=== PATIENT | female | born 1980 | race Caucasian/White ===

== ENCOUNTER 2016-10-25 20:22 | Emergency (ER) ==
[2016-10-25 20:31] VITALS: BP 106/70; TEMP 98.4; BMI 24.6
[2016-10-25] MEDS ORDERED: MORPHINE 4 MG/ML SYRINGE IVP STA (20:37)
[2016-10-25] MEDS ORDERED: ZOSYN 3.375 GM 3.375 GM in SODIUM CHLORIDE 100 ML IV STA (20:37)
[2016-10-25] MEDS ORDERED: ZOFRAN 4 MG/2 ML IVP STA (20:37)
[2016-10-25 20:53] LABS: BASOPHILS # (AUTO) 0.1 K/uL (0-0.2); BASOPHILS % (AUTO) 0.5 % (0.0-3.0); EOSINOPHILS # (AUTO) 0.1 K/ul (0.0-0.7); HEMATOCRIT 34.7 % (37.0-47.0); HEMOGLOBIN 12.5 g/dl (12.0-16.0); IMMATURE GRANULOCYTE % (AUTO) 0.2 % (0.0-5.0); LYMPHOCYTES # (AUTO) 2.1 K/uL (0.60-3.4); LYMPHOCYTES % (AUTO) 19.2 (10.0-50.0); MEAN CORPUSCULAR HEMOGLOBIN 31.6 pg (27.0-31.0); MEAN CORPUSCULAR VOLUME 87.6 fl (81.0-99.0); MONOCYTES # (AUTO) 0.6 K/uL (0.4-2.0); MONOCYTES % (AUTO) 5.6 (0-10); NEUTROPHILS # (AUTO) 7.8 K/ul (2.0-6.9); NEUTROPHILS % (AUTO) 73.5; PLATELET COUNT 239 10^3/uL (140-440); RED BLOOD COUNT 3.96 10^6/ul (4.20-5.40); WHITE BLOOD COUNT 10.65 K/ul (4.6-10.2)
[2016-10-25 21:13] LABS: ALBUMIN 3.9 g/dL (3.4-5.0); ALBUMIN/GLOBULIN RATIO 1.44; ANION GAP 14.3; BILIRUBIN,TOTAL 0.52 mg/dL (0.00-1.20); BUN/CREATININE RATIO 17.44; CALCIUM 9.1 mg/dL (8.2-10.2); CREATININE 0.86 mg/dL (0.60-1.30); POTASSIUM 3.3 mmol/L (3.5-5.10); TOTAL PROTEIN 6.6 g/dL (6.4-8.2)
--- NOTE | 2016-10-25 21:27 | ED.PDOC ---
General ED Provider: Dr. DEANGELO VITALE Chief Complaint: Bite Stated Complaint: Hasmukh is a 36 year old who comes to the ER with right foot pain and rash on right lower leg with a raised area that has gotten worse in the pat few hours. She thinks it started off as a bite. states the pain is severe radiating to the right ankle. Time Seen by Physician: 20:30 Mode of Arrival: Walk-In Information Source: Patient Exam Limitations: No limitations Primary Care Provider: SAURABH SANDOVAL Nursing and Triage Documentation Reviewed and Agree: Yes Skin Complaint Exam - Skin/Soft Tissue Complaint/Exam Onset/Duration: 1 day Symptoms Are: Still present Timing: Constant Initial Severity: Mild Current Severity: Moderate Location: Left burgos and ankle Character: Reports: Redness, Swelling, Raised, Painful Aggravating: Reports: Touch Alleviating: Reports: None Associated Signs and Symptoms: Reports: Tenderness, Red streaks, Joint swelling Related History: Reports: Insect bite/sting Recent Exposure to Others w/Similar Symptoms: No Skin Findings: Present: Erythema, Induration, Lymphangitic streaking, Pustules Joint Tenderness Present: Yes Differential Diagnoses: Abscess, Cellulitis, Lymphadenitis, MRSA Review of Systems - Review Of Systems Constitutional: Reports: No symptoms Eyes: Reports: No symptoms Ears, Nose, Mouth, Throat: Reports: No symptoms Respiratory: Reports: No symptoms Cardiac: Reports: No symptoms GI: Reports: No symptoms : Reports: No symptoms Musculoskeletal: Reports: Joint pain (right ankle pain. ) Skin: Reports: Lesions, Rash Neurological: Reports: No symptoms Endocrine: Reports: No symptoms Hematologic/Lymphatic: Reports: No symptoms All Other Systems: Reviewed and Negative Past Medical History - Past Medical History Previously Healthy: Yes Endocrine: Reports: None Cardiovascular: Reports: OK, Other (myocarditis ) Respiratory: Reports: None Hematological: Reports: None Gastrointestinal: Reports: None Genitourinary: Reports: None Neuro/Psych: Reports: None Musculoskeletal: Reports: None Cancer: Reports: None Last Menstrual Period: 1 month ago - Surgical History General Surgical History: Reports: None - Family History Family History: Reports: None - Social History Smoking Status: Former smoker Hx Substance Use: No Alcohol Screening: None - Immunizations Tetanus Shot up to Date: Yes Physical Exam - Physical Exam Appearance: Ill-appearing Ill-appearing: Moderate Pain Distress: Severe Neck: Supple Respiratory: Airway patent, Breath sounds clear, Breath sounds equal, Respirations nonlabored Cardiovascular: RRR, Pulses normal, No rub, No murmur GI/: Soft, Nontender, No masses, Bowel sounds normal, No Organomegaly Musculoskeletal: ROM intact, Edema (left ankle ) Skin: Warm, Dry Neurological: Sensation intact, Motor intact, Reflexes intact, Cranial nerves intact, Alert, Oriented Psychiatric: Anxious Critical Care Note - Critical Care Note Total Time (mins): 0 Course - Course Hematology/Chemistry: 10/25/16 20:37 10/25/16 20:54 Orders, Labs, Meds: Lab Review 10/25/16 10/25/16 20:37 20:54 WBC 10.65 H RBC 3.96 L Hgb 12.5 Hct 34.7 L MCV 87.6 MCH 31.6 H MCHC 36.0 H RDW Coeff of Sudha 12.7 Plt Count 239 Immature Gran % (Auto) 0.2 Neut % (Auto) 73.5 Lymph % (Auto) 19.2 Cotton % (Auto) 5.6 Eos % (Auto) 1.0 Baso % (Auto) 0.5 Immature Gran # (Auto) 0.0 Neut # 7.8 H Lymph # 2.1 Cotton # 0.6 Eos # 0.1 Baso # 0.1 Sodium 140 Potassium 3.3 L Chloride 106 Carbon Dioxide 23 Anion Gap 14.3 BUN 15 Creatinine 0.86 Estimated GFR (MDRD) 75.00 BUN/Creatinine Ratio 17.44 Glucose 95 Calcium 9.1 Total Bilirubin 0.52 AST 14 L ALT 12 Alkaline Phosphatase 60 Total Protein 6.6 Albumin 3.9 Globulin 2.7 Albumin/Globulin Ratio 1.44 Orders Category Date Time Status IV ACCESS ONCE CARE 10/25/16 20:37 Active ED VITAL SIGNS Q1HR EMERGENCY 10/25/16 20:37 Active BLOOD CULTURE Stat LAB 10/25/16 20:54 Results CBC W/ AUTO DIFF Stat LAB 10/25/16 20:37 Completed COMPREHENSIVE METABOLIC PANEL Stat LAB 10/25/16 20:54 Completed Morphine Sulfate [Morphine 4 mg/ml Syringe] MEDS 10/25/16 20:37 Discontinued 4 mg IVP ONCE STA Ondansetron HCl/Pf [Zofran 4 mg/2 ml] MEDS 10/25/16 20:37 Discontinued 4 mg IVP ONCE STA Piperacillin Sodium/Tazobactam [Zosyn 3.375 gm] 3.375 MEDS 10/25/16 20:37 Discontinued gm 0.9 % Sodium Chloride [Sodium Chloride] 100 ml IV ONCE Medications Discontinued Medications Generic Name Dose Route Start Last Admin Trade Name Mumtaz PRN Reason Stop Dose Admin Piperacillin Sod/Tazobactam 100 mls @ 100 mls/hr 10/25/16 20:37 10/25/16 21: 10 Sod 3.375 gm/ Sodium Chloride IV 10/25/16 21:36 100 mls/hr ONCE STA Administration Morphine Sulfate 4 mg 10/25/16 20:37 10/25/16 21:09 Morphine 4 Mg/Ml Syringe IVP 10/25/16 20:38 4 mg ONCE STA Administration Ondansetron HCl 4 mg 10/25/16 20:37 10/25/16 21:09 Zofran 4 Mg/2 Ml IVP 10/25/16 20:38 4 mg ONCE STA Administration Vital Signs: Temp Pulse Resp BP Pulse Ox 10/25/16 20:22 98.4 F 84 20 106/70 97 Departure - Departure Time of Disposition: 21:50 Disposition: HOME SELF-CARE Discharge Problem: Bite Cellulitis Qualifiers: Site of cellulitis: extremity Site of cellulitis of extremity: lower extremity Laterality: right Qualifier Code: (L03.115) Cellulitis of right lower limb Instructions: Cellulitis (ED), Brown Recluse Spider Bite (ED) Condition: Stable Pt referred to PMD for follow-up: Yes Additional Instructions: Take medications as prescribed Follow up with PCP in 3 days Return if worse as it may need debriedment Prescriptions: Cephalexin [Keflex] 500 mg PO Q8HR #30 capsule Ibuprofen [Motrin] 600 mg PO Q6H PRN #30 tablet PRN Reason: Analgesia Allergies/Adverse Reactions: Allergies No Known Drug Allergies Adverse Reaction (Verified 10/27/16 16:56) Home Medications: Ambulatory Orders Chlordiazepoxide HCl [Librium] 10 mg PO BID PRN 10/11/16 Cephalexin [Keflex] 500 mg PO Q8HR #30 capsule 10/25/16 Ibuprofen [Motrin] 600 mg PO Q6H PRN #30 tablet 10/25/16 Disposition Discussed With: Patient, Family
== END 2016-10-25 21:31 | disposition home or self-care (01) ==
LOC: ED 20:22
DX: L03.115 Cellulitis of right lower limb (principal); T63.331A Toxic effect of venom of brown recluse spider, accidental (unintentional), initial encounter
CPT/HCPCS: 36415; 80053; 85025; 87040; 96365; 96375; 99283; 99284

== ENCOUNTER 2016-10-27 16:37 | Inpatient (IN) ==
[2016-10-27 16:42] VITALS: BMI 24.3
[2016-10-27] MEDS ORDERED: VANCOMYCIN 1 GM in SODIUM CHLORIDE 250 ML IV STA (17:06)
[2016-10-27] MEDS ORDERED: SODIUM CHLORIDE 1,000 ML IV STA (17:06)
[2016-10-27 17:17] LABS: BASOPHILS % (AUTO) 0.5 % (0.0-3.0); EOSINOPHILS # (AUTO) 0.2 K/ul (0.0-0.7); EOSINOPHILS % (AUTO) 1.9 % (0.0-7.0); HEMATOCRIT 32.8 % (37.0-47.0); HEMOGLOBIN 11.7 g/dl (12.0-16.0); IMMATURE GRANULOCYTE % (AUTO) 0.2 % (0.0-5.0); LYMPHOCYTES # (AUTO) 1.7 K/uL (0.60-3.4); LYMPHOCYTES % (AUTO) 20.2 (10.0-50.0); MEAN CORPUSCULAR HEMOGLOBIN 31.2 pg (27.0-31.0); MEAN CORPUSCULAR HGB CONC 35.7 (31.8-35.4); MEAN CORPUSCULAR VOLUME 87.5 fl (81.0-99.0); MONOCYTES # (AUTO) 0.5 K/uL (0.4-2.0); MONOCYTES % (AUTO) 5.7 (0-10); NEUTROPHILS % (AUTO) 71.5; PLATELET COUNT 234 10^3/uL (140-440); RED BLOOD COUNT 3.75 10^6/ul (4.20-5.40); WHITE BLOOD COUNT 8.36 K/ul (4.6-10.2)
[2016-10-27 17:31] LABS: SERUM PREGNANCY INTERNAL QC INTERNAL QC VALID
[2016-10-27] MEDS ORDERED: TORADOL IVP STA (17:36)
[2016-10-27 17:39] LABS: ALBUMIN 3.5 g/dL (3.4-5.0); ALBUMIN/GLOBULIN RATIO 1.21; ANION GAP 11.6; BILIRUBIN,TOTAL 0.37 mg/dL (0.00-1.20); BUN/CREATININE RATIO 14.42; CREATININE 1.04 mg/dL (0.60-1.30); POTASSIUM 3.6 mmol/L (3.5-5.10); TOTAL PROTEIN 6.4 g/dL (6.4-8.2)
--- NOTE | 2016-10-27 17:46 | ED.PDOC ---
General ED Provider: Dr. BECKY MCCORMICK-ER Chief Complaint: Bite Stated Complaint: was seen in the ed 2 days ago for "bug bite" now with erythema from knee to ankle--warm--noted early abscess right mid lower leg Time Seen by Physician: 16:40 Mode of Arrival: Walk-In Information Source: Patient Exam Limitations: No limitations Primary Care Provider: SAURABH KWON Nursing and Triage Documentation Reviewed and Agree: Yes Skin Complaint Exam - Skin/Soft Tissue Complaint/Exam Onset/Duration: 2 days Symptoms Are: Still present Timing: Constant Initial Severity: Mild Current Severity: Moderate Location: right lower leg Character: Reports: Redness, Swelling, Raised, Painful Alleviating: Reports: None Associated Signs and Symptoms: Reports: Tenderness, Red streaks, Joint swelling. 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 Related Surgical History: Reports: None Recent Exposure to Others w/Similar Symptoms: No Skin Findings: Present: Erythema, Induration, Fluctuant mass Joint Tenderness Present: No Differential Diagnoses: Abscess, Cellulitis Review of Systems - Review Of Systems Constitutional: Reports: No symptoms Eyes: Reports: No symptoms Ears, Nose, Mouth, Throat: Reports: No symptoms Respiratory: Reports: No symptoms Cardiac: Reports: No symptoms GI: Reports: No symptoms : Reports: No symptoms Musculoskeletal: Reports: No symptoms Skin: Reports: Rash Neurological: Reports: No symptoms Endocrine: Reports: No symptoms Hematologic/Lymphatic: Reports: No symptoms All Other Systems: Reviewed and Negative Past Medical History - Past Medical History Previously Healthy: Yes Endocrine: Reports: None Cardiovascular: Reports: NC Respiratory: Reports: None Hematological: Reports: None Gastrointestinal: Reports: None Genitourinary: Reports: None Neuro/Psych: Reports: None Musculoskeletal: Reports: None Cancer: Reports: None Last Menstrual Period: now - Surgical History General Surgical History: Reports: None - Family History Family History: Reports: None - Social History Smoking Status: Former smoker Hx Substance Use: No Alcohol Screening: None Lives: With family Physical Exam - Physical Exam Appearance: Well-appearing, No pain distress, Well-nourished Pain Distress: Moderate Eyes: KULWINDER, EOMI, Conjunctiva clear ENT: Ears normal, Nose normal, Oropharynx normal Neck: Supple Respiratory: Airway patent, Breath sounds clear, Breath sounds equal, Respirations nonlabored Cardiovascular: RRR, Pulses normal, No rub, No murmur GI/: Soft, Nontender, No masses, Bowel sounds normal, No Organomegaly Musculoskeletal: Normal strength, ROM intact, No edema, No calf tenderness Skin: Warm, Dry (noted erythema from ankle to knee and notd mid burgos small abscess 2cm), Normal color Neurological: Sensation intact, Motor intact, Reflexes intact, Cranial nerves intact, Alert, Oriented Psychiatric: Affect appropriate, Mood appropriate Physician Notification - Case Discussed Physician Notified: dr kwon Time of Notification: 17:47 Critical Care Note - Critical Care Note Total Time (mins): 0 Course - Course Hematology/Chemistry: 10/27/16 17:10 10/27/16 17:10 Orders, Labs, Meds: Lab Review 10/27/16 17:10 WBC 8.36 RBC 3.75 L Hgb 11.7 L Hct 32.8 L MCV 87.5 MCH 31.2 H MCHC 35.7 H RDW Coeff of Sudha 13.1 Plt Count 234 Immature Gran % (Auto) 0.2 Neut % (Auto) 71.5 Lymph % (Auto) 20.2 [place] % (Auto) 5.7 Eos % (Auto) 1.9 Baso % (Auto) 0.5 Immature Gran # (Auto) 0.0 Neut # 6.0 Lymph # 1.7 O'Brien # 0.5 Eos # 0.2 Baso # 0.0 ESR Pending Sodium 139 Potassium 3.6 Chloride 105 Carbon Dioxide 26 Anion Gap 11.6 BUN 15 Creatinine 1.04 Estimated GFR (MDRD) 60.00 BUN/Creatinine Ratio 14.42 Glucose 82 Calcium 9.0 Total Bilirubin 0.37 AST 13 L ALT 13 Alkaline Phosphatase 55 Total Protein 6.4 Albumin 3.5 Globulin 2.9 Albumin/Globulin Ratio 1.21 Serum , Qual Negative Orders Category Date Time Status ED IV/MEDIPORT/POWERPORT .ONCE EMERGENCY 10/27/16 17:06 Active CBC W/ AUTO DIFF Stat LAB 10/27/16 17:10 Results COMPREHENSIVE METABOLIC PANEL Stat LAB 10/27/16 17:10 Completed ESR Stat LAB 10/27/16 17:10 Results SERUM Stat LAB 10/27/16 17:10 Completed 0.9 % Sodium Chloride [Saline Flush] MEDS 10/27/16 17:06 Active 1 syr IVF PRN PRN Ketorolac Tromethamine [Toradol] MEDS 10/27/16 17:36 Discontinued 30 mg IVP ONCE STA Sodium Chloride 0.9% [Sodium Chloride] 1,000 ml MEDS 10/27/16 17:06 Active IV 100 mls/hr Vancomycin HCl [Vancomycin] 1 gm MEDS 10/27/16 17:06 Active 0.9 % Sodium Chloride [Sodium Chloride] 250 ml IV ONCE Medications Generic Name Dose Route Start Last Admin Trade Name Freq PRN Reason Stop Dose Admin Sodium Chloride 1,000 mls @ 100 mls/hr 10/27/16 17:06 10/27/16 17:31 Sodium Chloride IV 10/28/16 03:05 100 mls/hr .Q10H STA Administration Vancomycin HCl 1 gm/ Sodium 250 mls @ 250 mls/hr 10/27/16 17:06 10/27/16 17: 31 Chloride IV 10/27/16 18:05 250 mls/hr ONCE STA Administration Sodium Chloride 1 syr 10/27/16 17:06 10/27/16 17:35 Saline Flush IVF 1 syr PRN PRN Administration To flush IV Discontinued Medications Generic Name Dose Route Start Last Admin Trade Name Freq PRN Reason Stop Dose Admin Ketorolac Tromethamine 30 mg 10/27/16 17:36 Toradol IVP 10/27/16 17:37 ONCE STA Vital Signs: Temp Pulse Resp BP Pulse Ox 10/27/16 16:38 98.1 F 107 H 16 122/72 96 Departure - Departure Time of Disposition: 17:47 Disposition: HOME SELF-CARE Discharge Problem: Cellulitis Qualifiers: Site of cellulitis: extremity Site of cellulitis of extremity: lower extremity Laterality: right Qualifier Code: (L03.115) Cellulitis of right lower limb Instructions: Cellulitis (ED) Condition: Good Pt referred to PMD for follow-up: Yes Allergies/Adverse Reactions: Allergies No Known Drug Allergies Adverse Reaction (Verified 10/27/16 16:56) Home Medications: Ambulatory Orders Chlordiazepoxide HCl [Librium] 10 mg PO BID PRN 10/11/16 Cephalexin [Keflex] 500 mg PO Q8HR #30 capsule 10/25/16 Hydrocodone/Acetaminophen [[place] 5-325 Tablet] 1 tab PO Q6HR PRN #12 tablet Ibuprofen [Motrin] 600 mg PO Q6H PRN #30 tablet 10/25/16 Disposition Discussed With: Patient, Family
[2016-10-27 17:47] LABS: ERYTHROCYTE SEDIMENTATION RATE 22 mm/hr (0-20); ESR INTERNAL QC INTERNAL QC VALID
[2016-10-27] MEDS ORDERED: ZOFRAN 4 MG/2 ML IVP PRN (17:51)
[2016-10-27] MEDS ORDERED: LIBRIUM PO PRN (17:53)
[2016-10-27] MEDS: ZOSYN 3.375 GM 3.375 GM in SODIUM CHLORIDE 100 ML IV SCH (20:06)
[2016-10-27] MEDS: VANCOMYCIN 1 GM in SODIUM CHLORIDE 250 ML IV SCH (20:07)
[2016-10-27] MEDS: MORPHINE 2 MG/ML SYRINGE IVP PRN (20:11)
[2016-10-27] MEDS ORDERED: DECADRON 4 MG/ML SDV IVP STA (20:23)
[2016-10-27] MEDS: NORCO 7.5-325 PO PRN (23:28)
[2016-10-28] MEDS: ZOSYN 3.375 GM 3.375 GM in SODIUM CHLORIDE 100 ML IV SCH ×5 (00:03→23:51)
[2016-10-28] MEDS: NORCO 7.5-325 PO PRN ×2 (04:43→19:19)
[2016-10-28 05:07] LABS: BASOPHILS % (AUTO) 0.3 % (0.0-3.0); EOSINOPHILS % (AUTO) 0.6 % (0.0-7.0); HEMATOCRIT 33.9 % (37.0-47.0); HEMOGLOBIN 11.9 g/dl (12.0-16.0); IMMATURE GRANULOCYTE % (AUTO) 0.3 % (0.0-5.0); LYMPHOCYTES # (AUTO) 0.8 K/uL (0.60-3.4); LYMPHOCYTES % (AUTO) 12.5 (10.0-50.0); MEAN CORPUSCULAR HEMOGLOBIN 31.2 pg (27.0-31.0); MEAN CORPUSCULAR HGB CONC 35.1 (31.8-35.4); MONOCYTES # (AUTO) 0.3 K/uL (0.4-2.0); MONOCYTES % (AUTO) 4.9 (0-10); NEUTROPHILS # (AUTO) 5.3 K/ul (2.0-6.9); NEUTROPHILS % (AUTO) 81.4; PLATELET COUNT 235 10^3/uL (140-440); RED BLOOD COUNT 3.81 10^6/ul (4.20-5.40); WHITE BLOOD COUNT 6.55 K/ul (4.6-10.2)
[2016-10-28 05:30] LABS: ALBUMIN 3.2 g/dL (3.4-5.0); ALBUMIN/GLOBULIN RATIO 1.14; ANION GAP 11.6; BILIRUBIN,TOTAL 0.3 mg/dL (0.00-1.20); BUN/CREATININE RATIO 19.51; CALCIUM 8.4 mg/dL (8.2-10.2); CREATININE 0.82 mg/dL (0.60-1.30); POTASSIUM 4.6 mmol/L (3.5-5.10)
--- NOTE | 2016-10-28 09:42 | CONS ---
DATE OF CONSULTATION: 10/27/16 REASON FOR CONSULTATION: This is an examination of the patient who is a patient of Dr. Truong. I was asked to evaluate the patient. EXAMINATION: 36 year old female is seen at the request of Dr. Richmond. The patient had redness and swelling of the right leg. There is an area of redness and a dark spot at the center about 1 mm in size, probably the site of the bite. The dark spot is surrounded by a firm area and not fluctuant. The redness is not bright. She does have some swelling of the ankle lateral mallear surface. The pedal pulses are present in both feet. ASSESSMENT: CELLULITIS SECONDARY TO BITE, PROBABLY INSECT. IT DOES NOT APPEAR TO BE A BROWN RECLUSE AT THIS TIME. RECOMMENDATIONS: 1. The patient is given Vancomycin 1 gram every 12 hours and Zosyn. The combination is good, however the combination of both does have an increase in renal problems. 2. We will put a warm, moist compress for now and should be just during the day and should be removed during the night. There is not a fluctuant area at this time that an ultrasound or an MRI would probably not be of any use to determine any fluid collection that is drainable at this time. 3. Agree with the present management, plus elevation. I do believe that the antibiotic probably wound resolve the problem without any surgical intervention. 4. The patient's GFR is borderline at 60. Sugar is normal. Procalcitonin is ordered. Thanks you for allowing me to participate in the care of your patient. OMID
[2016-10-28] MEDS: VANCOMYCIN 1 GM in SODIUM CHLORIDE 250 ML IV SCH ×2 (10:59→21:04)
[2016-10-28] MEDS: LOVENOX SUBCUT SCH (10:59)
--- NOTE | 2016-10-28 11:38 | PCM.PROG ---
Attending Provider: ATTENDING PROVIDER: Dr. SAURABH SANDOVAL DATE OF SERVICE: 10/28/16 SUBJECTIVE: This 36 year old WHITE/ F was hospitalized 10/27/16. The patient is seen with Gretel, Nurse Practitioner. The patient is alert, lying in bed. Right lower leg swelling has improved, still with mild erythema and tenderness. The patient has been consulted by Dr. Rubio. REVIEW OF SYSTEMS: CONSTITUTIONAL: No night sweats. No fatigue, malaise, lethargy. No fever or chills. HEENT: Eyes: No visual changes. No eye pain. No eye discharge. ENT: No runny nose. No epistaxis. No sinus pain. No odynophagia. No congestion. RESPIRATORY: No cough, no congestion. No hemoptysis. CARDIOVASCULAR: No angina symptoms. No CHF symptoms. No atypical chest pain for CAD. No palpitations. No shortness of breath. GASTROINTESTINAL: No abdominal pain. No nausea or vomiting. No diarrhea or constipation. No hematemesis. No hematochezia. GENITOURINARY: No urgency. No frequency. No dysuria. No hematuria. No obstructive symptoms. No discharge. No pain. No significant abnormal bleeding. MUSCULOSKELETAL: No musculoskeletal pain; no joint swelling. NEUROLOGICAL: Awake, alert, oriented to time, place and person. No headache. No neck pain. No syncope. No seizures. No dizziness. PSYCHIATRIC: Not anxious. No depression. No suicidal thoughts. No homicidal thoughts. SKIN: No rash. Abscess skin right lower extremity. ENDOCRINE: No unexplained weight loss. No weight gain. HEMATOLOGIC/LYMPHATIC: No anemia. No purpura. No petechiae. No prolonged or excessive bleeding. No palpable lymph nodes. PHYSICAL EXAMINATION: GENERAL: The patient is awake, alert and oriented, sitting up in bed in no distress. VITAL SIGNS: Temperature 97.6 F, Pulse 61, Respiratory Rate 16, BP 92/52, Pulse Ox 97% HEENT: Head normocephalic, atraumatic. Eyes: Extraocular muscles are intact. Pupils are equal, round and reactive to light and accommodation. Ears: No lesions. Nose appeared normal. Throat: No exudate or erythema. NECK: Supple. No JVD, no carotid bruit. No lymphadenopathy or thyromegaly. LUNGS: Clear to auscultation. Percussion note normal. Chest symmetrical. HEART: S1, S2, no S3. No murmurs. No cyanosis or clubbing. No ascites. Pulses: Dorsalis pedis and posterior tibial pulses +1 to +2 both sides. ABDOMEN: Soft. Non-tender. Bowel sounds active. No CVA tenderness. No mass felt. EXTREMITIES: No edema. Full range of motion of all extremities, equal. NEUROLOGIC: No focal deficit. Cranial nerves II through XII are grossly intact. No headache, no double vision or headache. SKIN: 2 cm abscess on outer aspect right lower extremity. No drainage, mild erythema, tender, very mild swelling which has improved. LYMPHATIC: No palpable lymph nodes/no lymphedema. MUSCULOSKELETAL: Normal joints with no swelling. Muscle tone is normal. LAB REVIEW: 10/28/16 04:12 10/28/16 04:12 10/28/16 04:12: WBC 6.55, RBC 3.81 L, Hgb 11.9 L, Hct 33.9 L, MCV 89.0, MCH 31.2 H, MCHC 35.1, RDW Coeff of Sudha 13.1, Plt Count 235, Immature Gran % (Auto) 0.3, Neut % (Auto) 81.4, Lymph % (Auto) 12.5, Davis % (Auto) 4.9, Eos % (Auto) 0.6, Baso % (Auto) 0.3, Immature Gran # (Auto) 0.0, Neut # 5.3, Lymph # 0.8, Davis # 0.3 L, Eos # 0.0, Baso # 0.0, Sodium 140, Potassium 4.6, Chloride 111 H, Carbon Dioxide 22, Anion Gap 11.6, BUN 16, Creatinine 0.82, Estimated GFR (MDRD ) 79.00, BUN/Creatinine Ratio 19.51, Glucose 137 H D, Calcium 8.4, Total Bilirubin 0.30, AST 11 L, ALT 12, Alkaline Phosphatase 53, Total Protein 6.0 L, Albumin 3.2 L, Globulin 2.8, Albumin/Globulin Ratio 1.14 ASSESSMENT: 1. Right lower leg cellulitis/abscess 2 cm right lower leg. PLAN: 1. Warm compresses 3 to 4 times today 2. Keep leg elevated 3. Continue IV antibiotics Plan and coordination of the patient's care discussed in the presence of Central Sterile Tech and nurse. CONDITION: Stable SCRIBED BY: MITCH ARENAS, Wool Shearing Supervisor scribed while in presence of service performed by Dr. SAURABH SANDOVAL/GRETEL SIMMONS APRN on 10/28/16 ([id number])
[2016-10-28] MEDS: MORPHINE 2 MG/ML SYRINGE IVP PRN ×2 (12:28→16:46)
[2016-10-29 05:05] LABS: BASOPHILS % (AUTO) 0.6 % (0.0-3.0); EOSINOPHILS # (AUTO) 0.2 K/ul (0.0-0.7); EOSINOPHILS % (AUTO) 4.1 % (0.0-7.0); HEMATOCRIT 30.7 % (37.0-47.0); HEMOGLOBIN 10.4 g/dl (12.0-16.0); IMMATURE GRANULOCYTE % (AUTO) 0.2 % (0.0-5.0); LYMPHOCYTES # (AUTO) 1.8 K/uL (0.60-3.4); MEAN CORPUSCULAR HEMOGLOBIN 30.7 pg (27.0-31.0); MEAN CORPUSCULAR HGB CONC 33.9 (31.8-35.4); MEAN CORPUSCULAR VOLUME 90.6 fl (81.0-99.0); MONOCYTES # (AUTO) 0.3 K/uL (0.4-2.0); MONOCYTES % (AUTO) 6.5 (0-10); NEUTROPHILS # (AUTO) 2.3 K/ul (2.0-6.9); NEUTROPHILS % (AUTO) 49.6; PLATELET COUNT 209 10^3/uL (140-440); RED BLOOD COUNT 3.39 10^6/ul (4.20-5.40); WHITE BLOOD COUNT 4.62 K/ul (4.6-10.2)
[2016-10-29] MEDS: ZOSYN 3.375 GM 3.375 GM in SODIUM CHLORIDE 100 ML IV SCH ×2 (05:12→11:54)
[2016-10-29 05:23] LABS: ALBUMIN 2.7 g/dL (3.4-5.0); ALBUMIN/GLOBULIN RATIO 1.17; ANION GAP 10.9; BILIRUBIN,TOTAL 0.11 mg/dL (0.00-1.20); BUN/CREATININE RATIO 15.58; CALCIUM 7.9 mg/dL (8.2-10.2); CREATININE 0.77 mg/dL (0.60-1.30); POTASSIUM 3.9 mmol/L (3.5-5.10)
[2016-10-29 05:25] VITALS: BP 93/60; TEMP 97.7
[2016-10-29] MEDS: VANCOMYCIN 1 GM in SODIUM CHLORIDE 250 ML IV SCH (08:40)
[2016-10-29] MEDS: LOVENOX SUBCUT SCH (08:41)
--- NOTE | 2016-10-29 08:50 | US ---
Exam: Ultrasound of the right leg soft tissues. HISTORY: Gerardo raised painful area in the right calf laterally for 6 days. Procedures: Transverse and longitudinal real time luu scale echograms and color Doppler images of the right lower extremity area of interest were obtained. Findings/impressions: Sonographic evaluation of the area of interest in the lateral right calf demo nstrates a 2.1 cm x 0.8 cm x 2.3 cm hypoechoic collection in the subcutaneous fat. There is no inter nal color flow. This appears to communicate with the skin surface. Infection cannot be excluded on the basis of imaging.
--- NOTE | 2016-10-29 11:16 | CONS ---
DATE OF CONSULTATION: 10/28/16 HISTORY OF PRESENT ILLNESS: The patient is seen today for a followup on the insect bite right midlateral leg. The pinpoint dark area is persistent. The area was quite firm yesterday and seems to be slightly fluctuant today. The redness and swelling in the lateral malleolar surface has resolved. Ultrasound will be requested to see if there is any drainable fluid in the subcutaneous tissue. There is not any fluid in there that the antibiotic will be continued. The EGFR today is better now 70 from 60. The Procalcitonin was normal. VITAL SIGNS: Temperature 97.1, pulse 82, blood pressure 113/51, respiratory rate 16 and oxygen saturation 98 at room air. MTDD
--- NOTE | 2016-10-29 11:46 | PCM.PROG ---
Attending Provider: ATTENDING PROVIDER: Dr. SAURABH SANDOVAL DATE OF SERVICE: 10/29/16 SUBJECTIVE: This 36 year old WHITE/ F was hospitalized 10/27/16. The patient is seen with rGetel, Nurse Practitioner. The patient is alert, sitting up in bed. Surrounding erythema has significantly improved. The patient is ready to go home. The patient had ultrasound of the abscess, waiting on further instructions from Dr. Rubio. REVIEW OF SYSTEMS: CONSTITUTIONAL: No night sweats. No fatigue, malaise, lethargy. No fever or chills. HEENT: Eyes: No visual changes. No eye pain. No eye discharge. ENT: No runny nose. No epistaxis. No sinus pain. No odynophagia. No congestion. RESPIRATORY: No cough, no congestion. No hemoptysis. No shortness of breath. CARDIOVASCULAR: No angina symptoms. No CHF symptoms. No atypical chest pain for CAD. No palpitations. No orthopnea. GASTROINTESTINAL: No abdominal pain. No nausea or vomiting. No diarrhea or constipation. No hematemesis. No hematochezia. GENITOURINARY: No urgency. No frequency. No dysuria. No hematuria. No obstructive symptoms. No discharge. No pain. No significant abnormal bleeding. MUSCULOSKELETAL: No musculoskeletal pain; no joint swelling. NEUROLOGICAL: Awake, alert, oriented to time, place and person. No headache. No neck pain. No syncope. No seizures. No dizziness. PSYCHIATRIC: Not anxious. No depression. No suicidal thoughts. No homicidal thoughts. SKIN: Skin abscess right lower extremity. ENDOCRINE: No unexplained weight loss. No weight gain. HEMATOLOGIC/LYMPHATIC: No anemia. No purpura. No petechiae. No prolonged or excessive bleeding. No palpable lymph nodes. PHYSICAL EXAMINATION: GENERAL: The patient is awake, alert and oriented, sitting in bed in no distress. VITAL SIGNS: Temperature 97.7 F, Pulse 59, Respiratory Rate 20, BP 93/60, Pulse Ox 95% HEENT: Head normocephalic, atraumatic. Eyes: Extraocular muscles are intact. Pupils are equal, round and reactive to light and accommodation. Ears: No lesions. Nose appeared normal. Throat: No exudate or erythema. NECK: Supple. No JVD, no carotid bruit. No lymphadenopathy or thyromegaly. LUNGS: Clear to auscultation. Percussion note normal. Chest symmetrical. HEART: S1, S2, no S3. No murmurs. No cyanosis or clubbing. No ascites. Pulses: Dorsalis pedis and posterior tibial pulses +1 to +2 both sides. ABDOMEN: Soft. Non-tender. Bowel sounds active. No CVA tenderness. No mass felt. EXTREMITIES: No edema. Full range of motion of all extremities, equal. NEUROLOGIC: No focal deficit. Cranial nerves II through XII are grossly intact. No headache, no double vision or headache. SKIN: 1.5" area of induration with localized erythema only, tender, no drainage. LYMPHATIC: No palpable lymph nodes/no lymphedema. MUSCULOSKELETAL: Normal joints with no swelling. Muscle tone is normal. LAB REVIEW: 10/29/16 04:40 10/29/16 04:40 10/29/16 04:40: WBC 4.62, RBC 3.39 L, Hgb 10.4 L, Hct 30.7 L, MCV 90.6, MCH 30.7 , MCHC 33.9, RDW Coeff of Sudha 13.1, Plt Count 209, Immature Gran % (Auto) 0.2, Neut % (Auto) 49.6, Lymph % (Auto) 39.0, [place] % (Auto) 6.5, Eos % (Auto) 4.1, Baso % (Auto) 0.6, Immature Gran # (Auto) 0.0, Neut # 2.3, Lymph # 1.8, [place] # 0.3 L, Eos # 0.2, Baso # 0.0, Sodium 144, Potassium 3.9, Chloride 113 H, Carbon Dioxide 24, Anion Gap 10.9, BUN 12, Creatinine 0.77, Estimated GFR (MDRD) 85.00 , BUN/Creatinine Ratio 15.58, Glucose 96, Calcium 7.9 L, Total Bilirubin 0.11, AST 9 L, ALT 12, Alkaline Phosphatase 41 L, Total Protein 5.0 L, Albumin 2.7 L, Globulin 2.3, Albumin/Globulin Ratio 1.17 ASSESSMENT: 1. Right lower leg cellulitis/abscess 1.5 cm right lower leg. PLAN: 1. Awaiting ultrasound results. 2. Instructions from dr. Rubio. 3. From our standpoint, it is okay to discharge patient. Plan and coordination of the patient's care discussed in the presence of Supply Chain Logistics Manager and nurse. CONDITION: Stable SCRIBED BY: MITCH ARENAS Lockstitcher scribed while in presence of service performed by Dr. SAURABH SANDOVAL/GRETEL SIMMONS APRN on 10/29/16 ([id number])
--- NOTE | 2016-10-29 11:52 | CM.DICTOOL ---
ADMISSION: 10/27/16 17:53 DISCHARGE: 10/29/16 FINAL DIAGNOSIS CELLULITIS, ABSCESS RIGHT LEG HISTORY OF: AMI 2012 HYPOTENSION ANEMIA SURGICAL HISTORY: HEART CATH 2012 LAST VITALS Temp Pulse Resp BP Pulse Ox 97.7 F 59 L 20 93/60 95 10/29/16 05:24 10/29/16 05:24 10/29/16 05:24 10/29/16 05:24 10/29/16 05:24 ACTIVE MEDICATIONS Chlordiazepoxide HCl (Librium) 10 mg PO BID PRN PRN Reason: Anxiety ALLERGIES No Known Drug Allergies Adverse Reaction (Verified 10/27/16 16:56) NEW PRESCRIPTIONS: CLINDAMYCIN 300MG TAKE 1 BY MOUTH 3 TIMES A DAY FOR 7 DAYS. TAKE UNTIL ALL GONE. SMOKING: N/A DISEASE SPECIFIC EDUCATION: CELLULITS MEDICATIONS DRESSING CARE LAB REVIEW: 10/29/16 04:40 10/29/16 04:40 10/29/16 04:40: WBC 4.62, RBC 3.39 L, Hgb 10.4 L, Hct 30.7 L, MCV 90.6, MCH 30.7 , MCHC 33.9, RDW Coeff of Sudha 13.1, Plt Count 209, Immature Gran % (Auto) 0.2, Neut % (Auto) 49.6, Lymph % (Auto) 39.0, Labette % (Auto) 6.5, Eos % (Auto) 4.1, Baso % (Auto) 0.6, Immature Gran # (Auto) 0.0, Neut # 2.3, Lymph # 1.8, Labette # 0.3 L, Eos # 0.2, Baso # 0.0, Sodium 144, Potassium 3.9, Chloride 113 H, Carbon Dioxide 24, Anion Gap 10.9, BUN 12, Creatinine 0.77, Estimated GFR (MDRD) 85.00 , BUN/Creatinine Ratio 15.58, Glucose 96, Calcium 7.9 L, Total Bilirubin 0.11, AST 9 L, ALT 12, Alkaline Phosphatase 41 L, Total Protein 5.0 L, Albumin 2.7 L, Globulin 2.3, Albumin/Globulin Ratio 1.17 PLAN: DISCHARGE HOME TODAY CONTINUE HOME MEDS PER NURSING SHEET NEW MEDICATION 1. CLINDAMYCIN 300MG TAKE 1 BY MOUTH 3 TIMES A DAY FOR 7 DAYS. TAKE UNTIL ALL GONE. ACTIVITY TOLERATED DIET TOLERATED KEEP WOUND CLEAN AND DRY. DO NOT CHANGE OR REMOVE DRESSING. FOLLOW UP WITH DR. SANDOVAL IN 5 DAYS. CALL FOR APPOINTMENT. [phone]. FOLLOW UP WITH DR. CHAPMAN FOR WOUND CARE ON TUESDAY. TAKE DRESSING SUPPLIES WITH YOU TO APPOINTMENT WITH DR. CHAPMAN THAT YOU WERE GIVEN. CALL FOR APPOINTMENT DATE AND TIME. [phone]. ALERT AND ORIENTED X 4. STATES SOME BETTER. Valencia SIMMONS APRN INTO SEE PATIENT. APPETITE IS GOOD. VITAL SIGNS ARE STABLE. IS AFEBRILE. HEART TONES ARE REGULAR. DENIES CHEST PAIN. LUNGS ARE CLEAR. DENIES COUGH OR DYSPNEA. ABDOMEN IS SOFT, NON-TENDER WITH BOWEL SOUNDS POSITIVE IN ALL 4 QUADS. PEDAL PULSES POSITIVE WITH NON-PITTING EDEMA TO RIGHT LOWER EXTREMITY. WOUND TO OUTER ASPECT OF RIGHT CALF WITH LESS SWELLING AND REDNESS. SWELLING IS MORE LOCALIZED TO WOUND AREA. REDNESS AND SWELLING TO LOWER LEG AND FOOT RESOLVED. HAS SALINE LOCK IN LEFT HAND SITE IS CLEAN AND DRY. SAURABH SANDOVAL MD DANTE SIMMONS APRN
--- NOTE | 2016-10-29 12:35 | PN ---
DATE OF SERVICE: 10/28/16 SUBJECTIVE: The patient is a 36 year old white female hospitalized with left leg cellulitis. The patient's condition has improved and she doesn't have any fever or chills. The part of real cellulitis lateral to the right leg got more localized, no puss formation yet. Well of the right ankle has practically subsided. The calf is also without any swelling. REVIEW OF SYSTEMS: CONSTITUTIONAL: No night sweats. No fatigue, malaise, lethargy. No fever or chills. HEENT: Eyes: No visual changes. No eye pain. No eye discharge. ENT: No runny nose. No epistaxis. No sinus pain. No sore throat. No odynophagia. No congestion. RESPIRATORY: No cough, no congestion. No hemoptysis. CARDIOVASCULAR: No angina symptoms. No CHF symptoms. No atypical chest pain for CAD. No palpitations. No shortness of breath. GASTROINTESTINAL: No abdominal pain. No nausea or vomiting. No diarrhea or constipation. No hematemesis. No hematochezia. GENITOURINARY: No urgency. No frequency. No dysuria. No hematuria. No obstructive symptoms. No discharge. No pain. No significant abnormal bleeding. MUSCULOSKELETAL: No musculoskeletal pain; no joint swelling. NEUROLOGICAL: No headache. No neck pain. No syncope. No seizures. No dizziness. PSYCHIATRIC: Not anxious. No depression. No suicidal thoughts. No homicidal thoughts. SKIN: No rash. No lesions. No wounds. ENDOCRINE: No unexplained weight loss. No weight gain. HEMATOLOGIC/LYMPHATIC: No anemia. No purpura. No petechiae. No prolonged or excessive bleeding. No palpable lymph nodes. LABS: Hgb 11.9, hct 33, WBC 6,500 normal differential, creatinine 0.8, BUN 16 and potassium 4.6. PLAN: 1. Continue the same antibiotics 2. Continue Dr. Rubio on consultation The patient was seen and examined with the Nurse Practitioner. CONDITION: Stable TIME SPENT: More than 30 minutes. Plan and coordination of the patient's care discussed in the presence of nurse. OMID
--- NOTE | 2016-10-29 13:34 | HP ---
DATE OF SERVICE: 10/27/16 HISTORY OF PRESENT ILLNESS: This is a 36-year-old female who was seen in the emergency room on 10/25/16 for a bug bite on the right lower extremity who returned to the emergency room on with erythema from her knee to her ankle, which was warm and tender. She did not appear to be running any fever. She was already on oral antibiotics, Keflex and Bactrim. She was afebrile when she presented to the emergency room. PAST MEDICAL HISTORY: 1. Anxiety 2. GERD 3. Overweight 4. Pericarditis after 5. Recent hospitalization for chest pain which was negative and noncardiac in origin PAST SURGICAL HISTORY: 1. for twin delivery four years ago FAMILY HISTORY: Nothing significant. SOCIAL HISTORY: The patient is , lives at home with her children, stay at home . She is a former smoker. She denies any alcohol or ilicit drug use. REVIEW OF SYSTEMS: CONSTITUTIONAL: No fever. No fatigue or malaise. No night sweats. No fever or chills. HEENT: Eyes: No visual changes. No eye pain. No eye discharge. No blurred vision. ENT: No sore throat, no nasal drainage. No oral lesions. RESPIRATORY: No coughing. No hemoptysis. No shortness of breath. CARDIOVASCULAR: No angina symptoms. No CHF symptoms. No atypical chest pain for CAD. No palpitations. No orthopnea. GASTROINTESTINAL: No abdominal pain. No nausea or vomiting. No diarrhea or constipation. No hematemesis. No hematochezia. GENITOURINARY: No dysuria, no hematuria. No urgency. No frequency. No obstructive symptoms. No discharge. No pain. No significant abnormal bleeding. MUSCULOSKELETAL: Pain right lower extremity consistent with area of abscess otherwise no other joint swelling or redness. NEUROLOGICAL: She is alert and oriented. Affect is appropriate. No headache. No neck pain. No syncope. No seizures. No dizziness. PSYCHIATRIC: Not anxious. No depression. No suicidal thoughts. No homicidal thoughts. SKIN: Intact with exception of abscess on right lower extremity. ENDOCRINE: No unexplained weight loss. No weight gain. HEMATOLOGIC/LYMPHATIC: No anemia. No purpura. No petechiae. No prolonged or excessive bleeding. No palpable lymph nodes. MEDICATIONS: (Home) 1. Librium 10 mg p.o. b.i.d. p.r.n. 2. Keflex 500 mg p.o. q.8hr 3. Motrin 600 mg q.6hr 4. Zantac 150 mg p.r.n. ALLERGIES: NKDA PHYSICAL EXAMINATION: GENERAL APPEARANCE: Well-appearing. She is no acute distress. Well-nourished. Dresses appropriately. VITAL SIGNS: Temperature 98.1, heart rate 107, respirations 16, BP 122/72, pulse ox 96. HEENT: Head normocephalic, atraumatic. Eyes: Extraocular muscles are intact. Pupils are equal, round and reactive to light and accommodation. Conjunctivae are clear. Ears: Tympanic membranes within normal limits. Nose is within normal limits. No drainage. Oropharynx within normal limits. Mouth is moist with no lesions. NECK: Supple. No JVD, no carotid bruit. No lymphadenopathy or thyromegaly. LUNGS: Clear and equal breath sounds bilaterally, no adventitious breath sounds. Respirations are nonlabored. Percussion note normal. Chest symmetrical. HEART: Regular rate and rhythm. No S3 with no murmurs, clicks or rubs. No cyanosis or clubbing. No ascites. Pulses: Dorsalis pedis and posterior tibial pulses +1 to +2 both sides. ABDOMEN: Soft. Nontender. Bowel sounds active times four quadrants. No hepatosplenomegaly. No CVA tenderness. No mass felt. EXTREMITIES: No edema. Full range of motion of all four extremities. No calf tenderness. She does have some mild swelling around the right knee to right ankle. NEUROLOGIC: No focal deficit. Cranial nerves I through XII are grossly intact. Alert and oriented. Affect and mood are appropriate. No headache, no double vision or headache. SKIN: Warm and dry. Positive for erythema from ankle to knee on right lower extremity with a round 1 cm abcess lesion with no drainage on the anterior aspect of the right lower extremity. This is also tender. LYMPHATIC: No palpable lymph nodes/no lymphedema. MUSCULOSKELETAL: Normal joints with no swelling. Muscle tone is normal. LABS: White count 8.36, hemoglobin 11.7, hematocrit 32.8, platelets 234. Sodium 139, potassium 3.6, BUN 15, creatinine 1.04, glucose 82. AST 13, ALT 13, alkaline phosphatase 55, total protein 6.4. ASSESSMENT: 1. CELLULITIS RIGHT LOWER EXTREMITY/2 CM ABSCESS RIGHT LOWER EXTREMITY PLAN: 1. Will admit. 2. Will place on IV antibiotics, IV Zosyn and Clindamycin. 3. Will do warm compresses to area of abscess. 4. Will elevate the leg. 5. The patient will be given [place] for pain management. 6. We will consult Dr. Rubio as a surgical consult. TIME SPENT: More than 70 minutes. OMID
--- NOTE | 2016-11-03 13:44 | PN ---
DATE OF SERVICE: 10/27/16 SUBJECTIVE: The patient is a 36 year old white female was seen in the emergency room two days ago with possible insect bite on the right leg. The patient has mild cellulitis, swelling of the right lateral aspect of the leg and ankle with some calf swelling, very faint redness. The patient complains mild to moderate pain in the leg. The truly infected spot is very small like less than a quarter with pin size bark spot in the middle. REVIEW OF SYSTEMS: CONSTITUTIONAL: No night sweats. No fatigue, malaise, lethargy. No fever or chills. HEENT: Eyes: No visual changes. No eye pain. No eye discharge. ENT: No runny nose. No epistaxis. No sinus pain. No sore throat. No odynophagia. No congestion. RESPIRATORY: No cough, no congestion. No hemoptysis. No shortness of breath. CARDIOVASCULAR: No angina symptoms. No CHF symptoms. No atypical chest pain for CAD. No palpitations. No orthopnea. GASTROINTESTINAL: No abdominal pain. No nausea or vomiting. No diarrhea or constipation. No hematemesis. No hematochezia. GENITOURINARY: No urgency. No frequency. No dysuria. No hematuria. No obstructive symptoms. No discharge. No pain. No significant abnormal bleeding. MUSCULOSKELETAL: No musculoskeletal pain; no joint swelling. NEUROLOGICAL: No headache. No neck pain. No syncope. No seizures. No dizziness. PSYCHIATRIC: Not anxious. No depression. No suicidal thoughts. No homicidal thoughts. SKIN: No rash. No lesions. No wounds. ENDOCRINE: No unexplained weight loss. No weight gain. HEMATOLOGIC/LYMPHATIC: No anemia. No purpura. No petechiae. No prolonged or excessive bleeding. No palpable lymph nodes. PHYSICAL EXAMINATION: HEENT: Head normocephalic, atraumatic. Eyes: Extraocular muscles are intact. Pupils are equal, round and reactive to light and accommodation. Ears: No lesions. Nose appeared normal. Throat: No exudate or erythema. NECK: Supple. No JVD, no carotid bruit. No lymphadenopathy or thyromegaly. LUNGS: Clear to auscultation. Percussion note normal. Chest symmetrical. HEART: S1, S2, no S3. No murmurs. No cyanosis or clubbing. No ascites. Pulses: Dorsalis pedis and posterior tibial pulses +1 to +2 both sides. ABDOMEN: Soft. Nontender. Bowel sounds active. No CVA tenderness. No mass felt. EXTREMITIES: No edema. Full range of motion of all extremities, equal. NEUROLOGIC: No focal deficit. Cranial nerves II through XII are grossly intact. No headache, no double vision or headache. SKIN: Not dry. Intact. Turgor - normal. LYMPHATIC: No palpable lymph nodes/no lymphedema. MUSCULOSKELETAL: Normal joints with no swelling. Muscle tone is normal. ASSESSMENT: 1. Cellulitis of the left leg PLAN: 1. Give Zosyn and Vancomycin 2. Daily CBC and CMP 3. 1/2cc Decadron 4. Surgical consult Dr. Rubio saw the patient and discussed with case. CONDITION: Stable. TIME SPENT: More than 30 minutes. Plan and coordination of the patient's care discussed in the presence of nurse. OMID
--- NOTE | 2016-11-11 09:15 | PN ---
DATE OF SERVICE: 10/29/16 SUBJECTIVE: 36 year old white female was hospitalized with cellulitis of the right leg. The patient had an abscess which was incised and drained by Dr. Rubio. The patient is ready to be discharged. The patient's leg looks a lot better with practically no swelling of the ankle or calf. The patient did not have any fever or chills. PHYSICAL EXAMINATION: GENERAL: The patient is sitting in bed in no distress. VITAL SIGNS: [ HEENT: Head normocephalic, atraumatic. Eyes: Extraocular muscles are intact. Pupils are equal, round and reactive to light and accommodation. Ears: No lesions. Nose appeared normal. Throat: No exudate or erythema. NECK: Supple. No JVD, no carotid bruit. No lymphadenopathy or thyromegaly. LUNGS: Clear to auscultation. Percussion note normal. Chest symmetrical. HEART: S1, S2, no S3. No murmurs. No cyanosis or clubbing. No ascites. Pulses: Dorsalis pedis and posterior tibial pulses +1 to +2 both sides. ABDOMEN: Soft. Nontender. Bowel sounds active. No CVA tenderness. No mass felt. EXTREMITIES: No edema. Full range of motion of all extremities, equal. NEUROLOGIC: No focal deficit. Cranial nerves II through XII are grossly intact. No headache, no double vision or headache. SKIN: As above. LYMPHATIC: No palpable lymph nodes/no lymphedema. MUSCULOSKELETAL: Normal joints with no swelling. Muscle tone is normal. PLAN: 1. The patient is to be discharged home. 2. She needs to follow up with Dr. Rubio and me as an outpatient. TIME SPENT: More than 30 minutes. The patient was then seen and examined with the nurse practitionerGretel. OMID
--- NOTE | 2016-11-11 09:16 | PN ---
10/27/16 level 5 10/28/16 intermediate 10/29/16 discharge MTDD
--- NOTE | 2016-11-18 07:12 | DS ---
DATE OF SERVICE: 10/29/16 FINAL DIAGNOSIS: 1. CELLULITIS, ABSCESS RIGHT LEG/INSECT BITE HISTORY OF: 2. AMI 2011 3. HYPOTENSION 4. ANEMIA 5. SURGICAL HISTORY - HEART CATH 2011 DISCHARGE INSTRUCTIONS: Followup appointment: Dr. Richmond in 5 days. Call for appointment, [phone]. Follow up with Dr. Rubio for wound care on Tuesday. Take dressing supplies with you to appointment with Dr. Rubio that you were given. Call for appointment date and time, [phone]. Keep wound clean and dry. Do not change or remove dressing. MEDICATIONS AT DISCHARGE: Librium 10 mg p.o. b.i.d. p.r.n. Keflex 500 mg p.o. q.8hr Ibuprofen 600 mg p.o. q.6h p.r.n. NEW PRESCRIPTIONS: Clindamycin 300 mg take one by mouth 3 times a day for 7 days, take until all gone. DIET INSTRUCTIONS: As tolerated. ACTIVITY: As tolerated. SMOKING: N/A DISEASE SPECIFIC EDUCATION: Cellulitis Medications Dressing Care HOSPITAL COURSE: This is a 36-year-old female who presented to the emergency room on 10/27 with right lower extremity pain and swelling. She had previously been to the emergency room with the same complaint two days before and was placed on Keflex. The area of tenderness continued to enlarge and the redness continued to extend from her knee down to her ankle. She was afebrile upon admission. She was admitted for cellulitis of the right lower extremity with an abscess on the anterior portion of the right lower extremity. Dr. Rubio was the surgical consult on the case. He saw the patient and she was placed on IV Zosyn along with IV Vancomycin. At the time of admission there was no drainage from the site. Yesterday morning on 10/28 she had some improvement in redness. It just extended down to the top of her foot and had none up to her knee. The area of induration of the abscess was still approximately appeared to be 1.5 inches with no drainage and it had not come to a head yet. We instructed for the nursing staff to do warm compresses 3 to 4 times a day for 10 to 20 minutes. After looking at it this morning it appeared that some of the area of induration had risen closer to the top of the skin. She only had localized erythema around the area of induration which still was approximately 1.5 inches. She no longer had any erythema extending past the area of induration of the abscess. This had resolved. The abscess and area of induration still remained extremely tender. Dr. Rubio ordered an ultrasound which showed infection of the subcutaneous tissue. He then incised and drained the lesion today. The patient tolerated the procedure well. She stated that she was ready to go home. Again she had remained afebrile through this entire hospital stay and she has significantly improved with IV antibiotics. She will go home on Clindamycin 300 mg t.i.d. for the next 7 days. She is to followup with Dr. Rubio at his office on Tuesday and she will see us on Tuesday unless her signs and symptoms change including increase in redness. The patient is instructed to continue with warm compresses and promote purulent expression of drainage while at home. Keep area clean and dry. The drainage was cultured and that is pending. The patient is discharged in stable condition. TIME SPENT: More than 60 minutes. OMID
== END 2016-10-29 12:20 | disposition home or self-care (01) | DRG 603 ==
LOC: ED 16:37 → MEDSURG A 17:53
PROVIDERS: ADMIT Internal Medicine; ATTEND Internal Medicine
DX: L03.115 Cellulitis of right lower limb (principal); L02.415 Cutaneous abscess of right lower limb; W57.XXXA Bitten or stung by nonvenomous insect and other nonvenomous arthropods, initial encounter; I95.9 Hypotension, unspecified; D64.9 Anemia, unspecified; I25.2 Old myocardial infarction; Z87.891 Personal history of nicotine dependence; Z98.61 Coronary angioplasty status; Z79.899 Other long term (current) drug therapy
CPT/HCPCS: 36415; 80053; 84145; 84703; 85025; 85651; 87081; 96365; 96375; 99223; 99232; 99239; 99283

== ENCOUNTER 2016-11-01 15:47 | Outpatient (CLI) ==
--- NOTE | 2016-11-01 16:19 | DI ---
EXAM: Right lower leg. Two-view HISTORY: Unspecified open wound COMPARISON: None FINDINGS: No fracture or dislocation. No cortical destruction to suggest osteomyelitis. Small to mo derate plantar calcaneal spur. Alignment is normal. Well marginated ossifications near the distal fi bula may relate to old trauma or ossification centers. There is focus of soft tissue gas about the lateral aspect of the mid lower leg. IMPERSSION: 1. No fracture or dislocation. No radiographic findings of osteomyelitis. 2. Focus of soft tissue gas about the lateral aspect of the mid lower leg, likely relates to history of open wound. Recommend clinical correlation. Report faxed at time of dictation.
== END 2016-11-01 15:48 | disposition home or self-care (01) ==
LOC: RAD 15:47
PROVIDERS: ATTEND Nurse Practitioner Family
DX: S81.801A Unspecified open wound, right lower leg, initial encounter (principal)

== ENCOUNTER 2016-11-03 15:15 | Outpatient (CLI) ==
--- NOTE | 2016-11-03 15:44 | DI ---
EXAM: Three views of the right ankle. History: Right ankle pain. Findings: No acute fracture or dislocation. No abnormal calcifications or radiopaque foreign blessing s. Joint spaces are preserved. Small to moderate plantar spur. Hypertrophic osseous changes of the lateral malleolus suggesting old ligamentous injury. Mild lateral soft tissue swelling. Impression: No acute osseous abnormality. Plantar spur. Mild lateral soft tissue swelling
== END 2016-11-03 15:16 | disposition home or self-care (01) ==
LOC: RAD 15:15
PROVIDERS: ATTEND Nurse Practitioner Family
DX: M25.571 Pain in right ankle and joints of right foot (principal)

== ENCOUNTER 2017-04-05 09:47 | Emergency (ER) ==
[2017-04-05 09:56] VITALS: BP 125/81; TEMP 98.5; BMI 24.5
--- NOTE | 2017-04-05 10:35 | DI ---
EXAM: Second digit of the left hand three views HISTORY: Foreign body. FINDINGS: There is a short metallic needle-like density measuring 4.7 mm long and about 0.9 mm wide superimposed over the lateral aspect of the distal finger at the level of the proximal aspect distal phalanx.. No fracture or joint dislocation is identified. IMPRESSION: Metallic foreign body of the distal finger.
--- NOTE | 2017-04-05 10:46 | ED.PDOC ---
General ED Provider: Dr. MIKHAIL WEBB Chief Complaint: Finger Pain/Injury Stated Complaint: LEFT INDEX PUNCTURE WOUND RETAINED F/B Time Seen by Physician: 10:00 (SEEN WITH STAFF ) Mode of Arrival: Walk-In Information Source: Patient Exam Limitations: No limitations Primary Care Provider: SAURABH SANDOVAL Nursing and Triage Documentation Reviewed and Agree: Yes Reviewed sepsis parameters & appropriate labs ordered?: Yes System Inflammatory Response Syndrome: Not Applicable Sepsis Protocol: For patient's 13 years and over: Temp is 96.8 and below OR 101 and greater Pulse >90 BPM Resp >20/minute Acutely Altered Mental Status Are patient's symptoms suggestive of a new infection, such as: -Pneumonia -Skin, Soft Tissue -Endocarditis -UTI -Bone, Joint Infection -Implantable Device -Acute Abdominal Infection -Wound Infection -Meningitis -Blood Stream Catheter Infection -Unknown System Inflammatory Response Syndrome: Not Applicable Musculoskeletal Complaint Exam - Hand/Wrist Complaint/Exam Location of Pain: Reports: Right, Digit #2 Mechanism of Injury: Reports: Trauma (NEEDLE BROKE IN THE RIGHT DISTAL INDEX FINGER ) Onset/Duration: 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 Symptoms Are: Still present Onset of Pain: Reports: Hours Initial Severity: Mild Current Severity: Mild Location: Reports: Discrete Character: Reports: Dull, Aching Alleviating: Reports: Rest Aggravating: Reports: None Associated Signs and Symptoms: Denies: Swelling, Redness, Bruising, Fever, Weakness, Numbness, Tingling Related History: Reports: Similar episode Dominant Hand: Right Related Surgical History: Reports: None Differential Diagnoses: Other (RETAINED F/B ) Review of Systems - Review Of Systems Constitutional: Reports: No symptoms Eyes: Reports: No symptoms Ears, Nose, Mouth, Throat: Reports: No symptoms Respiratory: Reports: No symptoms Cardiac: Reports: No symptoms GI: Reports: No symptoms : Reports: No symptoms Musculoskeletal: Reports: Other (CTURE WOUND LEFT INDEX ) Skin: Reports: No symptoms, Other (rash/abscess left lower leg see photos) Neurological: Reports: No symptoms Endocrine: Reports: No symptoms Hematologic/Lymphatic: Reports: No symptoms All Other Systems: Reviewed and Negative Past Medical History - Past Medical History Previously Healthy: Yes Endocrine: Reports: None Cardiovascular: Reports: ID Respiratory: Reports: None Hematological: Reports: None Gastrointestinal: Reports: None Genitourinary: Reports: None Neuro/Psych: Reports: None Musculoskeletal: Reports: None Cancer: Reports: None Last Menstrual Period: 1 month - Surgical History General Surgical History: Reports: None - Family History Family History: Reports: None - Social History Smoking Status: Current every day smoker, Light tobacco smoker Hx Substance Use: No Alcohol Screening: Occasionally - Immunizations Tetanus Shot up to Date: Yes (less than 5 yrs) Physical Exam - Physical Exam Appearance: Well-appearing, No pain distress, Well-nourished Eyes: KULWINDER, EOMI, Conjunctiva clear ENT: Ears normal, Nose normal, Oropharynx normal Respiratory: Airway patent, Breath sounds clear, Breath sounds equal, Respirations nonlabored Cardiovascular: RRR, Pulses normal, No rub, No murmur GI/: Soft, Nontender, No masses, Bowel sounds normal, No Organomegaly Musculoskeletal: Limited ROM (PUNCTURE WOUND LEFT SECOND FINGER ) Skin: Warm, Dry, Normal color Neurological: Sensation intact, Motor intact, Reflexes intact, Cranial nerves intact, Alert, Oriented Psychiatric: Affect appropriate, Mood appropriate Interpretation - Radiology Interpretation Radiology Interpretation By: Radiologist Radiology Results: Positive (METALIC F/B) Physician Notification - Case Discussed Physician Notified: cedrick conley at [facility] Time of Notification: 11:15 Critical Care Note - Critical Care Note Total Time (mins): 0 Course - Course Orders, Labs, Meds: Orders Category Date Time Status FINGER(S) RIGHT MIN 2V Stat RADS 04/05/17 10:07 Completed Vital Signs: Temp Pulse Resp BP Pulse Ox 04/05/17 09:48 98.5 F 77 20 125/81 98 Departure - Departure Time of Disposition: 10:47 Disposition: HOME SELF-CARE Discharge Problem: Injury of finger, Abscess of left leg Instructions: Puncture Wound (ED), Abscess Follow-up (ED), Abscess (ED) Condition: Good Pt referred to PMD for follow-up: Yes IPMP verified?: Yes Additional Instructions: Please call your Family Physician as soon as possible to schedule a follow-up appointment. Prescriptions: Sulfamethoxazole/Trimethoprim [Bactrim Ds Tablet] 1 each PO BID #14 tablet Allergies/Adverse Reactions: Allergies No Known Drug Allergies Adverse Reaction (Verified 04/05/17 09:56) Home Medications: Ambulatory Orders Sulfamethoxazole/Trimethoprim [Bactrim Ds Tablet] 1 each PO BID #14 tablet 04/05 Disposition Discussed With: Patient
== END 2017-04-05 11:20 | disposition home or self-care (01) ==
LOC: ED 09:47
DX: S61.241A Puncture wound with foreign body of left index finger without damage to nail, initial encounter (principal); W31.89XA Contact with other specified machinery, initial encounter; L02.416 Cutaneous abscess of left lower limb; F17.210 Nicotine dependence, cigarettes, uncomplicated
CPT/HCPCS: 99285

== ENCOUNTER 2017-04-07 13:50 | Inpatient (IN) ==
[2017-04-07 14:37] VITALS: BMI 25.4
[2017-04-07] MEDS ORDERED: LIDOCAINE HCL 1% SDV SUBCUT STA (16:52)
[2017-04-07] MEDS: OXYCODONE PO PRN ×2 (19:23→23:30)
[2017-04-07] MEDS ORDERED: VALIUM PO STA (21:05)
[2017-04-07] MEDS ORDERED: VANCOMYCIN 1,000 MG in SODIUM CHLORIDE 200 ML IV STA (21:07)
[2017-04-07] MEDS ORDERED: VANCOMYCIN 1,000 MG in SODIUM CHLORIDE 250 ML IV STA (21:12)
--- NOTE | 2017-04-07 21:30 | DI ---
Exam: Three x-rays of the lumbar spine. Reason for exam: Back pain. Comparison: None available. FINDINGS: No acute fracture or malalignment. The vertebral body and intervertebral body disc space heights are well maintained. There is a normal appearing lumbar lordotic curve. No significant dege nerative disease is seen. Impression: No acute fracture or listhesis in the lumbar spine. Report faxed at [phone] on 04/07/2017.
[2017-04-08] MEDS: OXYCODONE PO PRN ×2 (03:28→22:13)
[2017-04-08] MEDS: DEXTROSE 5%-NS IV SOLUTION 1,000 ML IV SCH (06:29)
[2017-04-08] MEDS: BACTROBAN TP SCH ×2 (08:48→20:54)
[2017-04-08] MEDS: VANCOMYCIN 1 GM in SODIUM CHLORIDE 250 ML IV SCH ×2 (08:48→20:54)
[2017-04-08] MEDS ORDERED: VANCOMYCIN 1,000 MG in SODIUM CHLORIDE 200 ML IV SCH ×4 (09:00)
[2017-04-08] MEDS: LIDODERM PATCH 5% TP SCH (11:04)
[2017-04-09] MEDS: DEXTROSE 5%-NS IV SOLUTION 1,000 ML IV SCH ×2 (00:02→10:49)
[2017-04-09] MEDS: OXYCODONE PO PRN ×5 (01:48→22:30)
[2017-04-09] MEDS: BACTROBAN TP SCH ×2 (08:18→20:28)
[2017-04-09] MEDS: VANCOMYCIN 1 GM in SODIUM CHLORIDE 250 ML IV SCH ×2 (08:19→20:27)
[2017-04-09] MEDS: LIDODERM PATCH 5% TP SCH (08:19)
[2017-04-09 22:16] VITALS: BP 99/58; TEMP 98.8
--- NOTE | 2017-04-12 15:33 | PN ---
DATE OF SERVICES: 04/07/17 HISTORY OF PRESENT ILLNESS: 37 year old female that was admitted with redness on the left anterior leg with a rounded raised area near the center. It is somewhat fluctuant. The patient was advised that I will try to incise and drain. The patient was agreeable. She was also further advised that there is always a possibility of scar formation and prolonged healing. The patient showed understanding. The patient was then brought to the emergency room because of the better lighting that is available rather then the room. PREOPERATIVE DIAGNOSIS: Raised area left anterior leg probably abscess OPERATION: Incision and drainage. POSTOPERATIVE DIAGNOSIS: Raised area left anterior leg probably abscess PROCEDURE: The patient in a supine posture was then prepped and draped for surgery. 1% Xylocaine infiltration anesthesia was utilized. A transverse incision was made over the center of the raise red area. The area on the medial side had a small rounded 1mm yellowish material. A culture of this was done. A culture was also was done on the incision. There was some dejesus tissue but no obvious purulent material exuding through the opening. The area was then dressed with Neosporin plus band-aid. The patient tolerated the procedure well and was instructed to elevate her legs. This instruction was also given to the nurse to make sure the legs are elevated about 15 to 20 degrees. [facility]
--- NOTE | 2017-04-14 08:20 | DS ---
PATIENT IDENTIFICATION: 37 year old female was admitted because of cellulitis left leg with a raised rounded area in the lower anterior tibial surface slightly fluctuant. This patient has been placed on Bactrim because of the foreign in the left index finger. The problem with the left leg began some four days prior to presentation to the doctors office. This patient has a previous abscess in the right lateral leg. Because of the previous history and the persistent problem in spite of the oral antibiotic that was given for the finger not for the leg the patient was felt requiring admission at least for a few days of intervenous antibiotics. HOSPITAL COURSE: The patient had pain in the legs as well as pain in the left lower lateral paralumbar area. The x-ray of the lumbar spine showed no acute fracture or listhesis in the lumbar spine. The patient felt that the pain was triggered by lifting her child. The patient while in the hospital was given Vancomycin 1gram intervenous every `12 hours. The swelling and redness on the left anterior leg is less yesterday and much less today. The cultures done during the course of the incisions soon after admission were negative for any bacterial growth. The blood cultures were also negative after two days. The patient at the time of discharge was alert and ambulatory with no significant pain in the leg and pain in the left lower paralumbar is much less. She did says that she would just ibuprofen. She also wanted to know whether there are patches that they can buy over the counter and I said yes there are Salonpas or even Lidocaine is also over the counter at the lower strength. She will be discharged as soon as she completed the dose of Vancomycin tonight. She should then continue with the Bactrim to be twice a day beginning tomorrow. She should see Dr. Richmond this coming Tuesday and before if there is any concerns. If she needed anything before Dr. Richmond comes back to town then she should let me know or call me or come to the emergency room. FINAL DIAGNOSES: 1. Cellulitis left leg anterior, resolving 2. Pain left paralumbar probably musculoskeletal 3. Foreign body left index finger removed with signs of infection. [facility]
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
== END 2017-04-09 22:45 | disposition home or self-care (01) | DRG 603 ==
LOC: MEDSURG B 13:50
PROVIDERS: ADMIT General Practice; ATTEND General Practice
PROC: 0H9LXZX Drainage of Left Lower Leg Skin, External Approach, Diagnostic (ICD-10-PCS; principal; 2017-04-07)
DX: L03.116 Cellulitis of left lower limb (principal); M54.5 Low back pain; S60.451A Superficial foreign body of left index finger, initial encounter; L08.9 Local infection of the skin and subcutaneous tissue, unspecified
CPT/HCPCS: 36415; 80053; 81001; 84703; 85025; 87040; 87070

== ENCOUNTER 2017-09-24 08:58 | Emergency (ER) | payer OTHER ==
[2017-09-24 09:06] VITALS: BP 99/63; TEMP 96.1; BMI 23.6
[2017-09-24] MEDS ORDERED: SOLU-MEDROL 125 MG IM STA (09:16)
[2017-09-24] MEDS ORDERED: CLARITIN PO STA (09:16)
[2017-09-24] MEDS ORDERED: EPINEPHRINE 1:1,000 AMP IM STA (09:20)
--- NOTE | 2017-09-24 09:28 | ED.PDOC ---
General ED Provider: Dr. DEANGELO VITALE Chief Complaint: Rash Stated Complaint: Patient is a 37 year old female who states he was working on her yard 2 days ago then noticed that she had a rash on the arms, neck, face and abdomen. Rash is raised and has been itching. Time Seen by Physician: 09:18 Mode of Arrival: Walk-In Information Source: Patient Primary Care Provider: SAURABH SANDOVAL Nursing and Triage Documentation Reviewed and Agree: Yes Does patient meet sepsis criteria?: No System Inflammatory Response Syndrome: Not Applicable Sepsis Protocol: For patient's 13 years and over: Temp is 96.8 and below OR 101 and greater Pulse >90 BPM Resp >20/minute Acutely Altered Mental Status Are patient's symptoms suggestive of a new infection, such as: -Pneumonia -Skin, Soft Tissue -Endocarditis -UTI -Bone, Joint Infection -Implantable Device -Acute Abdominal Infection -Wound Infection -Meningitis -Blood Stream Catheter Infection -Unknown Skin Complaint Exam - Skin Rash/Itching Complaint/Exam Onset/Duration: 2 days Symptoms Are: Still present Initial Severity: Moderate Current Severity: Severe Location: arms, neck, face and abdomen Potential Exposures: Reports: Plants Prior Treatment: bendaryl but got very sedated Aggravating: Reports: Showering, Heat, Clothing Alleviating: Reports: None Associated Signs and Symptoms: Reports: Difficulty breathing (mild ). Denies: Fever, Chills Skin Findings: Present: Urticaria Differential Diagnoses: Allergic Reaction, Contact Dermatitis, Urticaria Review of Systems - Review Of Systems Constitutional: Reports: No symptoms Eyes: Reports: No symptoms Ears, Nose, Mouth, Throat: Reports: No symptoms Respiratory: Reports: No symptoms Cardiac: Reports: No symptoms GI: Reports: No symptoms : Reports: No symptoms Musculoskeletal: Reports: No symptoms Skin: Reports: Rash Neurological: Reports: Anxiety Endocrine: Reports: No symptoms Hematologic/Lymphatic: Reports: No symptoms All Other Systems: Reviewed and Negative Past Medical History - Past Medical History Previously Healthy: Yes Endocrine: Reports: None Cardiovascular: Reports: [place] Respiratory: Reports: None Hematological: Reports: None Gastrointestinal: Reports: None Genitourinary: Reports: None Neuro/Psych: Reports: None Musculoskeletal: Reports: None Cancer: Reports: None Last Menstrual Period: 2 weeks - Surgical History General Surgical History: Reports: None - Family History Family History: Reports: None - Social History Smoking Status: Current every day smoker, Light tobacco smoker Hx Substance Use: No Alcohol Screening: Occasionally - Immunizations Tetanus Shot up to Date: Yes (03/2017) Physical Exam - Physical Exam Appearance: Ill-appearing, Well-nourished Ill-appearing: Mild Eyes: KULWINDER, EOMI, Conjunctiva clear ENT: Ears normal, Nose normal, Oropharynx normal Respiratory: Airway patent, Breath sounds clear, Breath sounds equal, Respirations nonlabored Cardiovascular: RRR, Pulses normal, No rub, No murmur GI/: Soft, Nontender, No masses, Bowel sounds normal, No Organomegaly Musculoskeletal: Normal strength, ROM intact, No edema, No calf tenderness Skin: Warm, Dry Neurological: Sensation intact, Motor intact, Reflexes intact, Cranial nerves intact, Alert, Oriented Psychiatric: Anxious Critical Care Note - Critical Care Note Total Time (mins): 0 Course - Course Orders, Labs, Meds: Orders Category Date Time Status Epinephrine Amp [Epinephrine 1:1,000 Amp] MEDS 09/24/17 09:20 Discontinued 0.3 mg IM ONCE STA Loratadine [Claritin] MEDS 09/24/17 09:16 Discontinued 10 mg PO ONCE STA Methylprednisolone Sod Succ/Pf [Solu-Medrol 125 mg] MEDS 09/24/17 09:16 Discontinued 125 mg IM ONCE STA Medications Discontinued Medications Generic Name Dose Route Start Last Admin Trade Name Mumtaz PRN Reason Stop Dose Admin Epinephrine HCl 0.3 mg 09/24/17 09:20 09/24/17 09:32 Epinephrine 1:1,000 Amp IM 09/24/17 09:21 0.3 mg ONCE STA Administration Loratadine 10 mg 09/24/17 09:16 09/24/17 09:29 Claritin PO 09/24/17 09:17 10 mg ONCE STA Administration Methylprednisolone Sodium Succinate 125 mg 09/24/17 09:16 09/24/17 09:30 Solu-Medrol 125 Mg IM 09/24/17 09:17 125 mg ONCE STA Administration Vital Signs: Temp Pulse Resp BP Pulse Ox 09/24/17 08:59 96.1 F L 66 20 99/63 96 Departure - Departure Time of Disposition: 09:38 Disposition: HOME SELF-CARE Discharge Problem: Urticaria Instructions: Urticaria (ED) Condition: Stable Pt referred to PMD for follow-up: Yes IPMP verified?: No Additional Instructions: Take OTC claritin as needed Avoid yard work for now Take Steroid as prescribed Follow up with PCP in 3 days Return if worse. Prescriptions: Prednisone 40 mg PO DAILYWM #10 tablet Allergies/Adverse Reactions: Allergies No Known Drug Allergies Adverse Reaction (Verified 09/24/17 09:06) Home Medications: Ambulatory Orders Prednisone 40 mg PO DAILYWM #10 tablet 09/24/17 Disposition Discussed With: Patient, Family
== END 2017-09-24 09:57 | disposition home or self-care (01) ==
LOC: ED 08:58
DX: L50.9 Urticaria, unspecified (principal); F17.210 Nicotine dependence, cigarettes, uncomplicated
CPT/HCPCS: 96372; 99282

== ENCOUNTER 2017-10-03 14:35 | Emergency (ER) ==
[2017-10-03 14:35] VITALS: BMI 23.6
[2017-10-03 14:40] VITALS: BP 127/67; TEMP 98.3
[2017-10-03] MEDS ORDERED: DECADRON 4 MG/ML SDV IM STA (15:37)
[2017-10-03] MEDS ORDERED: VISTARIL INJ IM STA (15:39)
--- NOTE | 2017-10-03 15:43 | ED.PDOC ---
General ED Provider: Dr. MIKHAIL WEBB Chief Complaint: Rash Stated Complaint: RASH Time Seen by Physician: 14:45 Mode of Arrival: Walk-In Information Source: Patient Exam Limitations: No limitations Primary Care Provider: SAURABH SANDOVAL Nursing and Triage Documentation Reviewed and Agree: Yes Does patient meet sepsis criteria?: No If yes, has appropriate treatment been initiated?: No System Inflammatory Response Syndrome: Not Applicable Sepsis Protocol: For patient's 13 years and over: Temp is 96.8 and below OR 101 and greater Pulse >90 BPM Resp >20/minute Acutely Altered Mental Status Are patient's symptoms suggestive of a new infection, such as: -Pneumonia -Skin, Soft Tissue -Endocarditis -UTI -Bone, Joint Infection -Implantable Device -Acute Abdominal Infection -Wound Infection -Meningitis -Blood Stream Catheter Infection -Unknown Skin Complaint Exam - Skin/Soft Tissue Complaint/Exam Onset/Duration: 2 DAYS Symptoms Are: Still present Timing: Constant Initial Severity: Moderate Current Severity: Moderate Character: Reports: Redness Aggravating: Reports: None Alleviating: Reports: None Associated Signs and Symptoms: Reports: Itching Related History: Reports: Similar episode (WAS TREATED WITH STEROID) Related Surgical History: Reports: None Recent Exposure to Others w/Similar Symptoms: No Skin Findings: Present: Erythema, Dry scaly skin Differential Diagnoses: Other (URTICARIA) Review of Systems - Review Of Systems Constitutional: Reports: No symptoms Eyes: Reports: No symptoms Ears, Nose, Mouth, Throat: Reports: No symptoms Respiratory: Reports: No symptoms Cardiac: Reports: No symptoms GI: Reports: No symptoms : Reports: No symptoms Musculoskeletal: Reports: No symptoms Skin: Reports: Rash (RASH SEE PHOTOS) Neurological: Reports: No symptoms Endocrine: Reports: No symptoms Hematologic/Lymphatic: Reports: No symptoms All Other Systems: Reviewed and Negative Past Medical History - Past Medical History Previously Healthy: Yes Endocrine: Reports: None Cardiovascular: Reports: [place] Respiratory: Reports: None Hematological: Reports: None Gastrointestinal: Reports: None Genitourinary: Reports: None Neuro/Psych: Reports: None Musculoskeletal: Reports: None Cancer: Reports: None Last Menstrual Period: 09/03 - Surgical History General Surgical History: Reports: None - Family History Family History: Reports: None - Social History Smoking Status: Current every day smoker, Light tobacco smoker Hx Substance Use: No Alcohol Screening: Occasionally - Immunizations Tetanus Shot up to Date: Yes Physical Exam - Physical Exam Appearance: Well-appearing, No pain distress, Well-nourished Eyes: KULWINDER, EOMI, Conjunctiva clear ENT: Ears normal, Nose normal, Oropharynx normal Respiratory: Airway patent, Breath sounds clear, Breath sounds equal, Respirations nonlabored Cardiovascular: RRR, Pulses normal, No rub, No murmur GI/: Soft, Nontender, No masses, Bowel sounds normal, No Organomegaly Musculoskeletal: Normal strength, ROM intact, No edema, No calf tenderness Skin: Warm, Dry (URTICARL RASH NOTED ) Neurological: Sensation intact, Motor intact, Reflexes intact, Cranial nerves intact, Alert, Oriented Psychiatric: Affect appropriate, Mood appropriate Critical Care Note - Critical Care Note Total Time (mins): 0 Course - Course Orders, Labs, Meds: Orders Category Date Time Status Dexamethasone 4 mg/ml Inj [Decadron 4 mg/ml Sdv] MEDS 10/03/17 15:37 Stat 8 mg IM ONCE STA Hydroxyzine HCl [Vistaril Inj] MEDS 10/03/17 15:39 Stat 25 mg IM ONCE STA Medications Generic Name Dose Route Start Last Admin Trade Name Freq PRN Reason Stop Dose Admin Hydroxyzine HCl 25 mg 10/03/17 15:39 Vistaril Inj IM 10/03/17 15:40 ONCE STA Discontinued Medications Generic Name Dose Route Start Last Admin Trade Name Freq PRN Reason Stop Dose Admin Dexamethasone Sodium Phosphate 8 mg 10/03/17 15:37 Decadron 4 Mg/Ml Sdv IM 10/03/17 15:38 ONCE STA Vital Signs: Temp Pulse Resp BP Pulse Ox 10/03/17 14:35 98.3 F 100 H 18 127/67 98 Departure - Departure Time of Disposition: 15:44 Disposition: HOME SELF-CARE Discharge Problem: Pruritic rash, Urticaria Instructions: Urticaria (ED) Condition: Good Pt referred to PMD for follow-up: Yes IPMP verified?: No Additional Instructions: Please call your Family Physician as soon as possible to schedule a follow-up appointment.Please call your Family Physician as soon as possible to schedule a follow-up appointment. Allergies/Adverse Reactions: Allergies No Known Drug Allergies Adverse Reaction (Verified 10/03/17 14:40) Home Medications: Ambulatory Orders 1 [No Reported Medications] 10/03/17
== END 2017-10-03 16:54 | disposition home or self-care (01) ==
LOC: ED 14:35
DX: L50.9 Urticaria, unspecified (principal); F17.210 Nicotine dependence, cigarettes, uncomplicated
CPT/HCPCS: 96372; 99282

== ENCOUNTER 2017-11-01 17:22 | Emergency (ER) ==
[2017-11-01 17:32] VITALS: BP 125/83; TEMP 99.1; BMI 25.4
[2017-11-01] MEDS ORDERED: BENADRYL IM STA (17:51)
[2017-11-01] MEDS ORDERED: DECADRON 4 MG/ML SDV IM STA (17:51)
--- NOTE | 2017-11-01 17:52 | ED.PDOC ---
General ED Provider: Dr. WOOD MOREJON Chief Complaint: Rash Stated Complaint: Rash started 1 day ago, Itching right hip, arm. had similar problems last month. no new detergent, no perfume, cloths. Time Seen by Physician: 17:49 Mode of Arrival: Walk-In Information Source: Patient Primary Care Provider: SAURABH SANDOVAL Nursing and Triage Documentation Reviewed and Agree: Yes Does patient meet sepsis criteria?: No If yes, has appropriate treatment been initiated?: No System Inflammatory Response Syndrome: Not Applicable Sepsis Protocol: For patient's 13 years and over: Temp is 96.8 and below OR 101 and greater Pulse >90 BPM Resp >20/minute Acutely Altered Mental Status Are patient's symptoms suggestive of a new infection, such as: -Pneumonia -Skin, Soft Tissue -Endocarditis -UTI -Bone, Joint Infection -Implantable Device -Acute Abdominal Infection -Wound Infection -Meningitis -Blood Stream Catheter Infection -Unknown Skin Complaint Exam - Skin Rash/Itching Complaint/Exam Symptoms Are: Still present Initial Severity: Mild Current Severity: Moderate Potential Exposures: Reports: Unknown Aggravating: Reports: None Alleviating: Reports: None Associated Signs and Symptoms: Denies: Difficulty breathing, Fever, Chills Related History: Similar episode Differential Diagnoses: Allergic Reaction Review of Systems - Review Of Systems Constitutional: Reports: No symptoms Eyes: Reports: No symptoms Ears, Nose, Mouth, Throat: Reports: No symptoms Respiratory: Reports: No symptoms Cardiac: Reports: No symptoms GI: Reports: No symptoms : Reports: No symptoms Musculoskeletal: Reports: No symptoms Skin: Reports: Rash Neurological: Reports: No symptoms Endocrine: Reports: No symptoms Hematologic/Lymphatic: Reports: No symptoms All Other Systems: Reviewed and Negative Past Medical History - Past Medical History Previously Healthy: Yes Endocrine: Reports: None Cardiovascular: Reports: [place] Respiratory: Reports: None Hematological: Reports: None Gastrointestinal: Reports: None Genitourinary: Reports: None Neuro/Psych: Reports: None Musculoskeletal: Reports: None Cancer: Reports: None Last Menstrual Period: now - Surgical History General Surgical History: Reports: None - Family History Family History: Reports: None - Social History Smoking Status: Current every day smoker, Light tobacco smoker Smoking Cessation Counseling Time: > 3 min - 10 min Hx Substance Use: No Alcohol Screening: Occasionally Physical Exam - Physical Exam Appearance: Well-appearing, No pain distress, Well-nourished Eyes: KULWINDER, EOMI, Conjunctiva clear ENT: Ears normal, Nose normal, Oropharynx normal Respiratory: Airway patent, Breath sounds clear, Breath sounds equal, Respirations nonlabored Cardiovascular: RRR, Pulses normal, No rub, No murmur GI/: Soft, Nontender, No masses, Bowel sounds normal, No Organomegaly Musculoskeletal: Normal strength, ROM intact, No edema, No calf tenderness Skin: Warm, Dry, Normal color Neurological: Sensation intact, Motor intact, Reflexes intact, Cranial nerves intact, Alert, Oriented Psychiatric: Affect appropriate, Mood appropriate Critical Care Note - Critical Care Note Total Time (mins): 30 Course - Course Vital Signs: Temp Pulse Resp BP Pulse Ox 11/01/17 17:24 99.1 F 94 H 20 125/83 97 Departure - Departure Time of Disposition: 17:51 Disposition: HOME SELF-CARE Discharge Problem: Pruritic rash Instructions: Dermatitis (ED) Condition: Stable Pt referred to PMD for follow-up: Yes IPMP verified?: No Additional Instructions: Take medication with food If not better in 2 days needs f/u Prescriptions: Diphenhydramine HCl [Benadryl] 25 mg PO Q6H #14 capsule Prednisone 10 mg PO BIDWM #14 tablet Allergies/Adverse Reactions: Allergies No Known Drug Allergies Adverse Reaction (Verified 11/01/17 17:29) Home Medications: Ambulatory Orders Diphenhydramine HCl [Benadryl] 25 mg PO Q6H #14 capsule 11/01/17 Prednisone 10 mg PO BIDWM #14 tablet 11/01/17 Disposition Discussed With: Patient, Family
== END 2017-11-01 18:30 | disposition home or self-care (01) ==
LOC: ED 17:22
DX: R21 Rash and other nonspecific skin eruption (principal); L29.9 Pruritus, unspecified; F17.210 Nicotine dependence, cigarettes, uncomplicated
CPT/HCPCS: 96372; 99282

== ENCOUNTER 2018-03-08 15:37 | Emergency (ER) ==
[2018-03-08 15:45] VITALS: BP 122/83; TEMP 98.6; BMI 24.7
[2018-03-08] MEDS ORDERED: LIDOCAINE HCL 1% SDV IM STA (18:05)
[2018-03-08] MEDS ORDERED: ROCEPHIN IM STA (18:05)
--- NOTE | 2018-03-08 18:08 | ED.PDOC ---
General ED Provider: Dr. MIKHAIL WEBB Chief Complaint: Nausea/Vomiting Stated Complaint: n/v/ one episode of vomiting some blood Time Seen by Physician: 16:00 Mode of Arrival: Walk-In Information Source: Patient Exam Limitations: No limitations Primary Care Provider: SAURABH SANDOVAL Nursing and Triage Documentation Reviewed and Agree: Yes Does patient meet sepsis criteria?: No If yes, has appropriate treatment been initiated?: No System Inflammatory Response Syndrome: Not Applicable Sepsis Protocol: For patient's 13 years and over: Temp is 96.8 and below OR 101 and greater Pulse >90 BPM Resp >20/minute Acutely Altered Mental Status Are patient's symptoms suggestive of a new infection, such as: -Pneumonia -Skin, Soft Tissue -Endocarditis -UTI -Bone, Joint Infection -Implantable Device -Acute Abdominal Infection -Wound Infection -Meningitis -Blood Stream Catheter Infection -Unknown GI Complaint Exam - Vomiting/Diarrhea Complaint/Exam Onset/Duration: 1 day Symptoms Are: Resolved Initial Severity: Mild Current Severity: None Character of Vomiting: Reports: Non-bilious Aggravating: Reports: None Alleviating: Reports: None Associated Signs and Symptoms: Reports: Abdominal pain. Denies: Dizziness, Light-headedness, Melena, Hematemesis, Fever, Cramping Non-GI Risk Factors: Reports: None Surgical Obstruction Risk Factors: Reports: None Related Surgical History: Reports: None Abdominal Findings: Present: None Review of Systems - Review Of Systems Constitutional: Reports: No symptoms Eyes: Reports: No symptoms Ears, Nose, Mouth, Throat: Reports: No symptoms Respiratory: Reports: No symptoms Cardiac: Reports: No symptoms GI: Reports: Nausea, Vomiting : Reports: No symptoms Musculoskeletal: Reports: No symptoms Skin: Reports: No symptoms Neurological: Reports: No symptoms Endocrine: Reports: No symptoms Hematologic/Lymphatic: Reports: No symptoms All Other Systems: Reviewed and Negative Past Medical History - Past Medical History Previously Healthy: Yes Endocrine: Reports: None Cardiovascular: Reports: CO Respiratory: Reports: None Hematological: Reports: None Gastrointestinal: Reports: None Genitourinary: Reports: None Neuro/Psych: Reports: None Musculoskeletal: Reports: None Cancer: Reports: None Last Menstrual Period: 1 month ago - Surgical History General Surgical History: Reports: None - Family History Family History: Reports: None - Social History Smoking Status: Current every day smoker, Light tobacco smoker Hx Substance Use: No Alcohol Screening: Occasionally Physical Exam - Physical Exam Appearance: Well-appearing, No pain distress, Well-nourished Eyes: KULWINDER, EOMI, Conjunctiva clear ENT: Ears normal, Nose normal, Oropharynx normal Respiratory: Airway patent, Breath sounds clear, Breath sounds equal, Respirations nonlabored Cardiovascular: RRR, Pulses normal, No rub, No murmur GI/: Soft, Nontender, No masses, Bowel sounds normal, No Organomegaly Musculoskeletal: Normal strength, ROM intact, No edema, No calf tenderness Skin: Warm, Dry, Normal color Neurological: Sensation intact, Motor intact, Reflexes intact, Cranial nerves intact, Alert, Oriented Psychiatric: Affect appropriate, Mood appropriate Re-Evaluation - Re-Evaluation Time of Re-Evaluation: 18:07 Status: Improved Vital Signs Stable: Yes Pain Level: 0 Appearance: NAD Lungs: Clear Skin: Warm and Dry Neuro: Alert and Oriented X3 CV: RRR Additional Comments: no vomiting while in the emrgency room also no gi bleed Critical Care Note - Critical Care Note Total Time (mins): 0 Course - Course Hematology/Chemistry: 03/08/18 17:23 03/08/18 17:23 Orders, Labs, Meds: Lab Review 03/08/18 03/08/18 03/08/18 17:23 17:23 17:23 WBC 6.84 RBC 4.22 Hgb 13.2 Hct 38.7 MCV 91.7 MCH 31.3 H MCHC 34.1 RDW Coeff of Sudha 12.9 Plt Count 263 Immature Gran % (Auto) 0.1 Neut % (Auto) 67.8 Lymph % (Auto) 21.2 Luna % (Auto) 8.8 Eos % (Auto) 1.5 Baso % (Auto) 0.6 Immature Gran # (Auto) 0.0 Neut # (Auto) 4.6 Lymph # (Auto) 1.5 Luna # (Auto) 0.6 Eos # (Auto) 0.1 Baso # (Auto) 0.0 PT 9.5 INR 0.95 APTT 22.8 L Sodium 137.3 Potassium 3.99 Chloride 104.9 Carbon Dioxide 26.6 Anion Gap 9.79 BUN 13.1 Creatinine 0.76 Estimated GFR (MDRD) 85.00 BUN/Creatinine Ratio 17.23 Glucose 99.8 Calcium 9.23 Total Bilirubin 0.31 AST 30.4 ALT 20.0 Alkaline Phosphatase 78.2 Total Protein 7.11 Albumin 4.24 Globulin 2.87 Albumin/Globulin Ratio 1.47 Serum , Qual Influ A Molecular Assay Influ B Molecular Assay 03/08/18 03/08/18 17:23 17:28 WBC RBC Hgb Hct MCV MCH MCHC RDW Coeff of Sudha Plt Count Immature Gran % (Auto) Neut % (Auto) Lymph % (Auto) Luna % (Auto) Eos % (Auto) Baso % (Auto) Immature Gran # (Auto) Neut # (Auto) Lymph # (Auto) Luna # (Auto) Eos # (Auto) Baso # (Auto) PT INR APTT Sodium Potassium Chloride Carbon Dioxide Anion Gap BUN Creatinine Estimated GFR (MDRD) BUN/Creatinine Ratio Glucose Calcium Total Bilirubin AST ALT Alkaline Phosphatase Total Protein Albumin Globulin Albumin/Globulin Ratio Serum , Qual Negative Influ A Molecular Assay Negative by naat Influ B Molecular Assay Negative by naat Orders Category Date Time Status CBC W/ AUTO DIFF Stat LAB 03/08/18 17:23 Completed COMPREHENSIVE METABOLIC PANEL Stat LAB 03/08/18 17:23 Completed FLU A/B MOLECULAR Stat LAB 03/08/18 17:28 Completed MOLECULAR GROUP A STREP Stat LAB 03/08/18 17:28 Completed PARTIAL THROMBOPLASTIN TIME Stat LAB 03/08/18 17:23 Completed SERUM TEST [SERUM ] Stat LAB 03/08/18 17:23 Completed PT WITH INR Stat LAB 03/08/18 17:23 Completed Ceftriaxone Sodium [Rocephin] MEDS 03/08/18 18:05 Stat 1 gm IM ONCE STA Lidocaine HCl/Pf [Lidocaine HCl 1% Sdv] MEDS 03/08/18 18:05 Stat 2.1 ml IM ONCE STA CT ABDOMEN/PELVIS WO CONTRAST Stat RADS 03/08/18 17:[address] CHEST W/O CONTRAST Stat RADS 03/08/18 17:14 Taken Vital Signs: Temp Pulse Resp BP Pulse Ox 03/08/18 15:37 98.6 F 95 H 18 122/83 98 Departure - Departure Time of Disposition: 19:00 Disposition: HOME SELF-CARE Discharge Problem: Nausea, Vomiting, Strep pharyngitis Instructions: Strep Throat (DC) Condition: Good Pt referred to PMD for follow-up: Yes IPMP verified?: No Additional Instructions: Please call your Family Physician as soon as possible to schedule a follow-up appointment. Prescriptions: Amoxicillin 500 mg PO Q8HR #21 tablet Allergies/Adverse Reactions: Allergies No Known Drug Allergies Adverse Reaction (Verified 03/08/18 15:40) Home Medications: Ambulatory Orders Amoxicillin 500 mg PO Q8HR #21 tablet 03/08/18 Disposition Discussed With: Patient, Family
--- NOTE | 2018-03-08 18:36 | CT ---
Exam: CT chest without intravenous contrast. Comparison: 10/11/2016. Reason for exam: Cough. FINDINGS: Image interpretation is limited by the lack of intravenous contrast. No pneumothorax, pleural effusion, or focal consolidation. The aorta is normal in course and caliber . The heart is not enlarged. No suspicious appearing osteoblastic or osteolytic lesions. No imaging evidence is seen to suggest mediastinal lymph node enlargement. The thyroid appears grossly unremarkable. Impression: No acute imaging findings are seen within the thorax
--- NOTE | 2018-03-08 18:51 | CT ---
EXAM: CT scan abdomen pelvis without contrast HISTORY: Abdominal pain COMPARISON: None. FINDINGS: Contiguous axial images obtained from lung bases to the symphysis pubis without contrast u tilizing 3-mm collimation. Sagittal and coronal reconstructions were imaged and reviewed.. The visu alized lung bases are clear. The gallbladder is contracted. The liver, pancreas, spleen and adrenal glands have normal unenhanced CT appearance.. The abdominal aorta is normal in course and caliber. The kidneys are morphologically normal. There is a normal retrocecal appendix. There is a 3.5 cm l eft adnexal cyst with free fluid. The bladder is small volumed limiting evaluation There is a fat-c ontaining umbilical hernia. Bone windows reveals no evidence of lytic or blastic lesions. IMPRESSION: Left adnexal cyst with free fluid. Normal appendix.
== END 2018-03-08 19:22 | disposition home or self-care (01) ==
LOC: ED 15:37
DX: J02.0 Streptococcal pharyngitis (principal); R11.2 Nausea with vomiting, unspecified; F17.210 Nicotine dependence, cigarettes, uncomplicated; I25.2 Old myocardial infarction
CPT/HCPCS: 36415; 80053; 84703; 85025; 85610; 85730; 87502; 87651; 96372; 99283

== ENCOUNTER 2018-11-14 16:13 | Outpatient (CLI) ==
--- NOTE | 2018-11-14 16:38 | DI ---
EXAM: Chest two views HISTORY: Acute bronchitis COMPARISON: 10/11/2016 TECHNIQUE: Two views of the chest were performed FINDINGS: The lungs are clear. There is no pleural effusion or pneumothorax. The heart is normal i n size. The mediastinal contour is normal. There are no acute abnormalities of the bones. IMPRESSION: No acute cardiopulmonary process.
== END 2018-11-14 16:14 | disposition home or self-care (01) ==
LOC: LAB 16:13
PROVIDERS: ATTEND Internal Medicine
DX: J20.9 Acute bronchitis, unspecified (principal); D64.9 Anemia, unspecified; K21.9 Gastro-esophageal reflux disease without esophagitis; F41.1 Generalized anxiety disorder
CPT/HCPCS: 36415; 80053; 80061; 83036; 84443; 85025